=== PATIENT | female | born 1930 | race Caucasian/White ===

== ENCOUNTER → 2018-08-08 | Outpatient (CLI) | payer MEDICARE ==
[~2018-08-08] MED LIST: AMLO5TAB7 PO; HYDR25TA PO; LOSA100T20 PO; METO25TA6 PO; NACL5OS OU; RIVA20TA PO; ROSU10TA PO
[2018-08-08 13:57] LABS: BASOPHILS % (AUTO) 2.6 % (0.0-5.0); EOSINOPHILS % (AUTO) 0.5 % (0.0-8.0); HEMATOCRIT 26.8 % (36-48); LYMPHOCYTES % (AUTO) 9.7 % (21.0-51.0); MEAN CORPUSCULAR HEMOGLOBIN 23.2 pg (27.0-33.0); MEAN CORPUSCULAR HGB CONC 31.6 g/dL (32.0-36.0); MEAN CORPUSCULAR VOLUME 73.5 fL (79-99); MONOCYTES % (AUTO) 11.1 % (3.0-13.0); NEUTROPHILS % (AUTO) 76.1 % (40.0-77.0); NUCLEATED RED BLOOD CELLS 0.1 % (0.0-0.19); RED BLOOD CELL COUNT(AUTO) 3.64 MIL/uL (4.00-5.50); RED CELL DISTRIBUTION WIDTH 21.4 % (11.0-15.5); WHITE BLOOD COUNT (AUTO) 6.9 K/uL (4.8-10.8)
[2018-08-08 14:22] LABS: PLATELET COUNT (AUTO) 91 K/uL (130-400)
[2018-08-08 14:23] LABS: ALBUMIN 3.3 g/dL (3.5-5.0); BILIRUBIN,TOTAL 1.4 mg/dL (0.2-1.0); CREATININE 0.7 mg/dL (0.5-1.5); POTASSIUM 3.8 mmol/L (3.5-5.1); T4 (THYROXINE) 7.9 mcg/dL (4.7-13.3); TOTAL PROTEIN, SERUM 6.9 g/dL (6.0-8.3)
== END | disposition home or self-care (01) ==
LOC: RAH 13:17
PROVIDERS: ATTEND Internal Medicine
DX: I82.431 Acute embolism and thrombosis of right popliteal vein (principal); I11.0 Hypertensive heart disease with heart failure; I50.30 Unspecified diastolic (congestive) heart failure; E78.00 Pure hypercholesterolemia, unspecified; D50.9 Iron deficiency anemia, unspecified; I48.91 Unspecified atrial fibrillation; Z79.899 Other long term (current) drug therapy
CPT/HCPCS: 36415; 80053; 82607; 82746; 84436; 84481; 85025; 93971

== ENCOUNTER 2018-10-10 12:58 | Observation (INO) | payer MEDICARE ==
[~2018-10-10] VITALS: Ht 157.5 cm; Wt 74.8 kg
[~2018-10-10 12:58] MED LIST changes: -AMLO5TAB7 PO; +AMLO5TAB9 PO; -LOSA100T20 PO; +LOSA100T58 PO
[2018-10-10 14:04] LABS: BASOPHILS % (AUTO) 3.5 % (0.0-5.0); EOSINOPHILS % (AUTO) 0.9 % (0.0-8.0); MEAN CORPUSCULAR HEMOGLOBIN 23.5 pg (27.0-33.0); MEAN CORPUSCULAR VOLUME 75.7 fL (79-99); NEUTROPHILS % (AUTO) 63.6 % (40.0-77.0); NUCLEATED RED BLOOD CELLS 0.1 % (0.0-0.19); PLATELET COUNT (AUTO) 111 K/uL (130-400); RED BLOOD CELL COUNT(AUTO) 3.31 MIL/uL (4.00-5.50); RED CELL DISTRIBUTION WIDTH 23.9 % (11.0-15.5); WHITE BLOOD COUNT (AUTO) 4.1 K/uL (4.8-10.8)
[2018-10-10 14:10] LABS: INR 1.24 (0.85-1.15); PARTIAL THROMBOPLASTIN TIME 28.8 SEC (26.3-35.5)
[2018-10-10 14:24] LABS: CREATININE 0.8 mg/dL (0.5-1.5); POTASSIUM 3.8 mmol/L (3.5-5.1)
[2018-10-10 14:30] LABS: ALBUMIN 3.1 g/dL (3.5-5.0); TOTAL PROTEIN, SERUM 6.4 g/dL (6.0-8.3)
[2018-10-10 15:17] LABS: RETICULOCYTE % (AUTO) 2.27 % (0.42-2.23)
[2018-10-10] MEDS ORDERED: HYDRALAZINE HCL 20 MG/ML VIAL IV PRN (15:45)
[2018-10-10] MEDS ORDERED: EPOETIN ALFA 10,000 UNIT/ML VIAL SQ SCH (15:45)
[2018-10-10] MEDS ORDERED: ASCORBIC ACID 500 MG TAB PO SCH (15:45)
[2018-10-10] MEDS ORDERED: COMPOUND IV MISC 1 EACH IVSOLN MISC PRN (16:15)
[2018-10-10] MEDS ORDERED: FOLI1TAB15 PO (18:06)
[2018-10-10] MEDS ORDERED: CALC600T12 PO (18:06)
[2018-10-10] MEDS ORDERED: FERS325 PO (18:06)
[2018-10-10] MEDS ORDERED: BROM3DRO OP (18:07)
[2018-10-10] MEDS ORDERED: ATORVASTATIN CALCIUM 20 MG TABLET ONE (20:29)
[2018-10-10] MEDS: ATORVASTATIN CALCIUM 20 MG TABLET PO SCH (21:00)
[2018-10-10] MEDS: METOPROLOL TARTRATE 50 MG TAB PO SCH (21:00)
[2018-10-10] MEDS: FERROUS SULFATE 325 MG TABLET.DR PO SCH (21:00)
[2018-10-11 00:15] VITALS: BP 122/68
[2018-10-11 04:00] VITALS: BP 105/58
[2018-10-11 06:56] LABS: MEAN CORPUSCULAR HEMOGLOBIN 23.2 pg (27.0-33.0); MEAN CORPUSCULAR HGB CONC 31.5 g/dL (32.0-36.0); MEAN CORPUSCULAR VOLUME 73.7 fL (79-99); NUCLEATED RED BLOOD CELLS 0.3 % (0.0-0.19); PLATELET COUNT (AUTO) 91 K/uL (130-400); RED BLOOD CELL COUNT(AUTO) 2.61 MIL/uL (4.00-5.50); WHITE BLOOD COUNT (AUTO) 3.9 K/uL (4.8-10.8)
[2018-10-11 07:11] LABS: CREATININE 0.9 mg/dL (0.5-1.5)
[2018-10-11 07:16] LABS: HEMATOCRIT 19.3 % (36-48)
[2018-10-11 08:00] VITALS: BP 118/47
[2018-10-11] MEDS: BROMFENAC SODIUM OP SCH (09:00)
[2018-10-11] MEDS ORDERED: RIVAROXABAN 20 MG TABLET PO SCH (09:00)
[2018-10-11] MEDS ORDERED: SODIUM CHLORIDE 0.9% 250 ML IV ONE (09:44)
[2018-10-11] MEDS: PANTOPRAZOLE SODIUM 40 MG TABLET.DR PO SCH (10:25)
[2018-10-11] MEDS: HYDROCHLOROTHIAZIDE 25 MG TABLET PO SCH (10:25)
[2018-10-11] MEDS: ASCORBIC ACID 500 MG TAB PO SCH (10:25)
[2018-10-11] MEDS: FERROUS SULFATE 325 MG TABLET.DR PO SCH ×2 (10:25→21:55)
[2018-10-11] MEDS: METOPROLOL TARTRATE 50 MG TAB PO SCH ×2 (10:25→21:55)
[2018-10-11] MEDS: LOSARTAN 50 MG TABLET PO SCH (10:25)
[2018-10-11] MEDS: CALCIUM CARBONATE 500 MG TABLET PO SCH (10:25)
[2018-10-11] MEDS: FOLIC ACID 1 MG TABLET PO SCH (10:30)
--- NOTE | 2018-10-11 10:43 | NUR ---
BLOOD TRANSFUSION PATIENT AWAKE AND ALERT IN BED. VOICES ALL NEEDS. NO COMPLAINTS OF PAIN VOICED AT THIS TIME. 1ST UNIT OF PACKED RBCS STARTED AT THIS TIME. VITALS STABLE. AFEBRILE. NO ADVERSE REACTIONS NOTED. RESP EVEN AND UNLABORED. NO SOB NOTED. ON ROOM AIR. HOB ELEVATED. CALL LIGHT WITHIN REACH. WILL CONTINUE TO BE OBSERVED. Addendum: 10/11/18 at 1046 by ELOISA RICHEY RN RN Amended: Links added.
[2018-10-11 12:00] VITALS: BP 106/53
[2018-10-11] MEDS: IRON SUCROSE COMPLEX 100 MG in SODIUM CHLORIDE 0.9% 50 ML IV SCH (13:36)
[2018-10-11 16:00] VITALS: BP 118/72
[2018-10-11 19:30] VITALS: BP 116/55
[2018-10-11] MEDS: ATORVASTATIN CALCIUM 20 MG TABLET PO SCH (21:55)
[2018-10-12] VITALS: BP 110/58
[2018-10-12 04:25] VITALS: BP 131/69
[2018-10-12 06:10] LABS: HEMATOCRIT 28.9 % (36-48); MEAN CORPUSCULAR HEMOGLOBIN 24.2 pg (27.0-33.0); MEAN CORPUSCULAR HGB CONC 32.1 g/dL (32.0-36.0); MEAN CORPUSCULAR VOLUME 75.2 fL (79-99); NUCLEATED RED BLOOD CELLS 0.2 % (0.0-0.19); PLATELET COUNT (AUTO) 104 K/uL (130-400); RED BLOOD CELL COUNT(AUTO) 3.84 MIL/uL (4.00-5.50); RED CELL DISTRIBUTION WIDTH 21.7 % (11.0-15.5); WHITE BLOOD COUNT (AUTO) 5.2 K/uL (4.8-10.8)
[2018-10-12 06:20] LABS: CREATININE 0.9 mg/dL (0.5-1.5); POTASSIUM 3.8 mmol/L (3.5-5.1)
[2018-10-12] MEDS: CALCIUM CARBONATE 500 MG TABLET PO SCH (08:54)
[2018-10-12] MEDS: FOLIC ACID 1 MG TABLET PO SCH (08:55)
[2018-10-12] MEDS: PANTOPRAZOLE SODIUM 40 MG TABLET.DR PO SCH (08:55)
[2018-10-12] MEDS: ASCORBIC ACID 500 MG TAB PO SCH (08:55)
[2018-10-12] MEDS: METOPROLOL TARTRATE 50 MG TAB PO SCH (08:55)
[2018-10-12] MEDS: FERROUS SULFATE 325 MG TABLET.DR PO SCH (08:55)
[2018-10-12] MEDS: LOSARTAN 50 MG TABLET PO SCH (08:55)
[2018-10-12] MEDS: HYDROCHLOROTHIAZIDE 25 MG TABLET PO SCH (08:56)
[2018-10-12] MEDS: BROMFENAC SODIUM OP SCH (09:00)
[2018-10-12] MEDS: IRON SUCROSE COMPLEX 100 MG in SODIUM CHLORIDE 0.9% 50 ML IV SCH (13:39)
--- NOTE | 2018-10-12 14:14 | NUR ---
DISCHARGE PATIENT GIVEN DISCHARGE INSTRUCTIONS AND EDUCATION, INCLUDING FOLLOW UP APPOINTMENTS. NO NEW MEDICATIONS. PATIENT VERBALIZED UNDERSTANDING OF ALL EDUCATION GIVEN VIA TEACH BACK. NO QUESTIONS OR CONCERNS VOICED AT THIS TIME. VITALS STABLE. AFEBRILE. NO SIGNS OF DISTRESS NOTED UPON DISCHARGE. IV DISCONTINUED, CATHETER INTACT. PATIENT SITTING UP TO CHAIR, PENDING RIDE FOR EVENT CREW TECHNICIAN. CALL LIGHT WITHIN REACH. WILL CONTINUE TO BE OBSERVED. Addendum: 10/12/18 at 1417 by ELOISA RICHEY RN RN Amended: Links added.
--- NOTE | 2018-10-12 14:45 | NUR ---
DISCHARGE PATIENT LEFT VIA WHEELCHAIR WITH FRIEND AT SIDE TO PRIVATE CAR. ALL BELONGINGS TAKEN WITH. Addendum: 10/12/18 at 1446 by ELOISA RICHEY RN RN Amended: Links added.
== END 2018-10-12 14:41 | disposition home or self-care (01) ==
LOC: EDH 12:58 → EDHIP 15:36 → 3AH 23:45
PROVIDERS: ADMIT Internal Medicine; ATTEND Internal Medicine
DX: D62 Acute posthemorrhagic anemia (principal); J44.9 Chronic obstructive pulmonary disease, unspecified; I48.0 Paroxysmal atrial fibrillation; I10 Essential (primary) hypertension; D61.818 Other pancytopenia; D68.59 Other primary thrombophilia; Z86.79 Personal history of other diseases of the circulatory system; Z87.891 Personal history of nicotine dependence; Z91.19 Patient's noncompliance with other medical treatment and regimen; Z82.0 Family history of epilepsy and other diseases of the nervous system; Z82.3 Family history of stroke; Z82.49 Family history of ischemic heart disease and other diseases of the circulatory system; Z82.5 Family history of asthma and other chronic lower respiratory diseases; Z83.3 Family history of diabetes mellitus; Z79.899 Other long term (current) drug therapy
CPT/HCPCS: 36415 ×3; 36430; 80048 ×2; 80053; 82550; 82607; 82746; 83540; 84484; 85025; 85027 ×2; 85045; 85610; 85730; 86850; 86900; 86901; 86922; 93005; 96365; 96376; 99284; A4600; G0378 ×47; J0885; J1756 ×3; J7030; P9016 ×2

== ENCOUNTER 2018-12-21 11:50 | Inpatient (IN) | payer MEDICARE ==
[~2018-12-21] VITALS: Ht 157.5 cm; Wt 74.6 kg
[~2018-12-21 11:50] MED LIST changes: -AMLO5TAB9 PO; +BROM3DRO OP; +CALC600T12 PO; +FERS325 PO; +FOLI1TAB15 PO; -NACL5OS OU; -RIVA20TA PO
[2018-12-21] MEDS ORDERED: METHYLPREDNISOLONE SOD SUCC 125MG/2ML VIAL ONE (12:05)
[2018-12-21] MEDS ORDERED: LACTATED RINGERS 1000ML 1,000 ML IV ONE (12:05)
[2018-12-21] MEDS ORDERED: IPRATROPIUM/ALBUTEROL SULFATE 3 ML SOLUTION IH ONE (12:09)
[2018-12-21] MEDS ORDERED: LEVOFLOXACIN 750 MG/D5W 150 ML 150 ML ONE (12:30)
[2018-12-21 12:32] LABS: BASOPHILS % (AUTO) 1.4 % (0.0-5.0); EOSINOPHILS % (AUTO) 1.4 % (0.0-8.0); HEMATOCRIT 31.4 % (36-48); MEAN CORPUSCULAR HEMOGLOBIN 28.4 pg (27.0-33.0); MEAN CORPUSCULAR HGB CONC 32.7 g/dL (32.0-36.0); MEAN CORPUSCULAR VOLUME 86.8 fL (79-99); MONOCYTES % (AUTO) 13.4 % (3.0-13.0); NEUTROPHILS % (AUTO) 72.8 % (40.0-77.0); NUCLEATED RED BLOOD CELLS 0.1 % (0.0-0.19); PLATELET COUNT (AUTO) 52 K/uL (130-400); RED BLOOD CELL COUNT(AUTO) 3.61 MIL/uL (4.00-5.50); RED CELL DISTRIBUTION WIDTH 25.6 % (11.0-15.5); WHITE BLOOD COUNT (AUTO) 5.9 K/uL (4.8-10.8)
[2018-12-21 12:38] LABS: ABG BASE EXCESS 0.7 mmol/L (-2.0-3.0); ABG HCO3 24.5 mmol/L (21.0-28.0); ABG OXYGEN SATURATION 95.5 % (95.0-99.0); ABG PCO2 37 mmHg (32-45)
[2018-12-21 12:47] LABS: INR 1.06 (0.85-1.15); PARTIAL THROMBOPLASTIN TIME 31.8 SEC (26.3-35.5); PROTHROMBIN TIME 11.1 SEC (9.6-11.6)
[2018-12-21] MEDS ORDERED: METOPROLOL TARTRATE 1 MG/ML 5ML VIAL IV ONE (13:00)
[2018-12-21 13:13] LABS: B-TYPE NATRIURETIC PEPTIDE 574 pg/mL (0-100)
[2018-12-21] MEDS ORDERED: ALBUTEROL SULFATE 0.083% 2.5 MG/3 ML INH IH ONE (14:06)
[2018-12-21] MEDS ORDERED: SODIUM CHLORIDE 0.9% 1000ML 1,000 ML IV SCH (14:29)
[2018-12-21] MEDS ORDERED: ONDANSETRON HCL 4 MG/2 ML VIAL IV PRN (14:30)
[2018-12-21] MEDS ORDERED: METHYLPREDNISOLONE SOD SUCC 125MG/2ML VIAL IV SCH (14:30)
[2018-12-21] MEDS ORDERED: ACETAMINOPHEN 325 MG TAB PO PRN ×2 (14:30)
[2018-12-21] MEDS ORDERED: MORPHINE SULFATE 2 MG/ML 1ML SYG IV PRN (14:30)
[2018-12-21] MEDS ORDERED: LEVOFLOXACIN 500 MG/D5W 100 ML 100 ML IV SCH (14:30)
[2018-12-21 17:54] LABS: POTASSIUM 3.5 mmol/L (3.5-5.1)
--- NOTE | 2018-12-21 18:00 | NUR ---
ADMISSION PT RECEIVED FROM ER VIA STRETCHER. TRANSFERRED BY STAFF X 4 FROM STRETCHER TO BED. TOLERATED WELL. QAGAN TAYAGUNGIN. A/O X 3. SOB ON EXERTION. NO DISTRESS NOTED. O2 NC @ 2L. DENIES CHEST PAIN OR DISCOMFORT. DENIES PALPITATIONS. TELE: AFIB 130s. DENIES N/V AND/OR DIARRHEA. BR W/BRP. ORIENTED TO RM. INSTRUCTED TO CALL FOR ASSISTANCE. CALL [facility] W/IN REACH.
[2018-12-21 18:27] VITALS: BP 141/76
[2018-12-21] MEDS: SODIUM CHLORIDE 3% FOR INHALATION 4 ML/AMP VIAL.NEB IH SCH ×2 (18:40→23:52)
[2018-12-21] MEDS: BUDESONIDE 0.5 MG/2 ML INH IH SCH (18:53)
[2018-12-21 19:00] VITALS: BP 127/70
[2018-12-21] MEDS ORDERED: RIVA20TA PO (19:17)
[2018-12-21] MEDS ORDERED: METOPROLOL TARTRATE 25 MG TAB PO SCH (21:00)
[2018-12-21] MEDS ORDERED: FAMOTIDINE/PF 20 MG/2 ML VIAL IV SCH (21:00)
--- NOTE | 2018-12-21 21:33 | NUR ---
Received call from VIDYA Ramachandran ,updated with pt.'s condition admitted today for Acute COPD exacerbation and pt. is Afib RVR in the 120's .BNP 574 and on IVF .Received order to stop IVF .
[2018-12-21] MEDS ORDERED: METHYLPREDNISOLONE SOD SUCC 40MG/ML 1ML IVP SCH (22:00)
[2018-12-21 23:00] VITALS: BP 138/85
[2018-12-22 03:00] VITALS: BP 133/90
[2018-12-22 03:59] LABS: HEMATOCRIT 26.7 % (36-48); MEAN CORPUSCULAR HEMOGLOBIN 28.1 pg (27.0-33.0); MEAN CORPUSCULAR HGB CONC 32.7 g/dL (32.0-36.0); MEAN CORPUSCULAR VOLUME 85.8 fL (79-99); NUCLEATED RED BLOOD CELLS 0.1 % (0.0-0.19); PLATELET COUNT (AUTO) 41 K/uL (130-400); RED BLOOD CELL COUNT(AUTO) 3.11 MIL/uL (4.00-5.50); RED CELL DISTRIBUTION WIDTH 25.4 % (11.0-15.5); WHITE BLOOD COUNT (AUTO) 6.3 K/uL (4.8-10.8)
[2018-12-22 04:06] LABS: B-TYPE NATRIURETIC PEPTIDE 574 pg/mL (0-100); MAGNESIUM 1.9 mg/dL (1.80-2.40); PHOSPHORUS 3.3 mg/dL (2.5-4.9); POTASSIUM 3.4 mmol/L (3.5-5.1)
[2018-12-22] MEDS: METHYLPREDNISOLONE SOD SUCC 40MG/ML 1ML IVP SCH ×3 (05:37→21:10)
[2018-12-22] MEDS ORDERED: DILTIAZEM HCL 60 MG TABLET PO SCH (06:00)
[2018-12-22] MEDS: BUDESONIDE 0.5 MG/2 ML INH IH SCH ×2 (06:15→18:08)
[2018-12-22] MEDS: SODIUM CHLORIDE 3% FOR INHALATION 4 ML/AMP VIAL.NEB IH SCH ×3 (06:15→18:08)
--- NOTE | 2018-12-22 07:22 | NUR ---
Pt. watched TV for most of the night.Bedside report given to incoming NOD using SBAR all questions answered.
[2018-12-22 07:27] VITALS: BP 129/84
[2018-12-22] MEDS ORDERED: RIVAROXABAN 20 MG TABLET PO SCH (09:00)
[2018-12-22] MEDS ORDERED: LOSARTAN 100 MG TABLET PO SCH (09:00)
--- NOTE | 2018-12-22 09:33 | NUR ---
RALPH RAYGOZA MET WITH PT WHO STATES SHE LIVES ALONE IN [facility]. PT IS , NO KIDS, HAS FRIENDS THAT ASSIST NEEDED CRISTIANO LEMUS [phone] AND WILLI MORTON [phone]. PT STATES SHE IS INDEPENDENT, USES WALKER AND SHOWER CHAIR. PLAN IS HOME AT [place], FRIENDS TO TRANSPORT Addendum: 12/22/18 at 0935 by BIJAN DONNELLY Amended: Links added.
[2018-12-22] MEDS: LOSARTAN 50 MG TABLET PO SCH (09:57)
[2018-12-22] MEDS: FOLIC ACID 1 MG TABLET PO SCH (09:57)
[2018-12-22] MEDS: FERROUS SULFATE 325 MG TABLET.DR PO SCH ×2 (09:57→20:48)
[2018-12-22] MEDS: FAMOTIDINE 20MG TAB 20 MG TAB PO SCH (09:57)
[2018-12-22] MEDS: METOPROLOL TARTRATE 50 MG TAB PO SCH ×2 (09:57→20:48)
[2018-12-22] MEDS: FUROSEMIDE 10 MG/ML 4ML VIAL IV SCH (10:08)
[2018-12-22] MEDS ORDERED: POTASSIUM CHLORIDE 10% ELIXIR 20 MEQ/15 ML UDCUP PO SCH (10:15)
[2018-12-22 11:06] VITALS: BP 117/62
[2018-12-22] MEDS: ENOXAPARIN SODIUM 40 MG/0.4 ML SYRINGE SQ SCH (12:04)
[2018-12-22] MEDS: DILTIAZEM HCL 60 MG TABLET PO SCH ×2 (13:23→21:10)
[2018-12-22] MEDS: IPRATROPIUM/ALBUTEROL SULFATE 3 ML SOLUTION IH SCH ×3 (15:08→21:53)
[2018-12-22 16:00] VITALS: BP 97/55
[2018-12-22 20:09] VITALS: BP 104/60
[2018-12-23 00:11] VITALS: BP 116/64
[2018-12-23] MEDS: SODIUM CHLORIDE 3% FOR INHALATION 4 ML/AMP VIAL.NEB IH SCH ×3 (00:35→13:47)
[2018-12-23] MEDS: IPRATROPIUM/ALBUTEROL SULFATE 3 ML SOLUTION IH SCH ×4 (02:29→13:47)
[2018-12-23 03:51] LABS: HEMATOCRIT 27.9 % (36-48); MEAN CORPUSCULAR HEMOGLOBIN 28.4 pg (27.0-33.0); MEAN CORPUSCULAR HGB CONC 32.7 g/dL (32.0-36.0); MEAN CORPUSCULAR VOLUME 86.8 fL (79-99); NUCLEATED RED BLOOD CELLS 0.1 % (0.0-0.19); PLATELET COUNT (AUTO) 52 K/uL (130-400); RED BLOOD CELL COUNT(AUTO) 3.21 MIL/uL (4.00-5.50); RED CELL DISTRIBUTION WIDTH 25.1 % (11.0-15.5)
[2018-12-23 04:09] VITALS: BP 99/65
[2018-12-23 04:20] LABS: CREATININE 1.3 mg/dL (0.5-1.5); PHOSPHORUS 3.4 mg/dL (2.5-4.9); POTASSIUM 3.5 mmol/L (3.5-5.1)
[2018-12-23] MEDS: METHYLPREDNISOLONE SOD SUCC 40MG/ML 1ML IVP SCH ×3 (04:23→21:21)
[2018-12-23 04:50] LABS: B-TYPE NATRIURETIC PEPTIDE 506 pg/mL (0-100)
[2018-12-23] MEDS: BUDESONIDE 0.5 MG/2 ML INH IH SCH ×2 (05:59→18:21)
[2018-12-23] MEDS: DILTIAZEM HCL 60 MG TABLET PO SCH ×3 (06:08→21:22)
[2018-12-23 07:09] VITALS: BP 129/74
[2018-12-23] MEDS: FERROUS SULFATE 325 MG TABLET.DR PO SCH ×2 (07:13→21:22)
[2018-12-23] MEDS: METOPROLOL TARTRATE 50 MG TAB PO SCH ×2 (07:13→21:21)
[2018-12-23] MEDS: FUROSEMIDE 10 MG/ML 4ML VIAL IV SCH (07:13)
[2018-12-23] MEDS: LOSARTAN 50 MG TABLET PO SCH (07:13)
[2018-12-23] MEDS: ENOXAPARIN SODIUM 40 MG/0.4 ML SYRINGE SQ SCH (07:14)
[2018-12-23] MEDS: FOLIC ACID 1 MG TABLET PO SCH (07:14)
[2018-12-23] MEDS: FAMOTIDINE 20MG TAB 20 MG TAB PO SCH (07:14)
--- NOTE | 2018-12-23 08:00 | NUR ---
ASSESSMENT PT IS AAOX4 DENIES CP DENIES SOB AT REST. DENIES NV. NO COMPLAINTS VERBALIZED AT THIS TIME. AM MEDS GIVEN WITHOUT ISSUES. CALL LIGHT WITHIN REACH.
[2018-12-23 11:05] VITALS: BP 100/61
[2018-12-23] MEDS ORDERED: LEVOFLOXACIN 500 MG/D5W 100 ML 100 ML IV SCH (12:00)
--- NOTE | 2018-12-23 16:00 | NUR ---
DR BUCK ROUNDED SAW PATIENT
[2018-12-23 16:13] VITALS: BP 121/82
[2018-12-23] MEDS: IPRATROPIUM 0.5 MG/2.5 ML INH IH SCH ×2 (18:21→23:54)
[2018-12-23 20:04] VITALS: BP 118/67
[2018-12-23] MEDS: DOXYCYCLINE HYCLATE 100 MG TABLET PO SCH (21:22)
[2018-12-24] VITALS (7 sets, daily range): BP systolic 112–129; BP diastolic 61–79
[2018-12-24 04:22] LABS: BASOPHILS % (AUTO) 0.4 % (0.0-5.0); EOSINOPHILS % (AUTO) 0.2 % (0.0-8.0); HEMATOCRIT 26.6 % (36-48); LYMPHOCYTES % (AUTO) 6.1 % (21.0-51.0); MEAN CORPUSCULAR HEMOGLOBIN 28.6 pg (27.0-33.0); MEAN CORPUSCULAR HGB CONC 33.1 g/dL (32.0-36.0); MEAN CORPUSCULAR VOLUME 86.4 fL (79-99); MONOCYTES % (AUTO) 8.7 % (3.0-13.0); NEUTROPHILS % (AUTO) 84.6 % (40.0-77.0); NUCLEATED RED BLOOD CELLS 0.2 % (0.0-0.19); PLATELET COUNT (AUTO) 57 K/uL (130-400); RED BLOOD CELL COUNT(AUTO) 3.08 MIL/uL (4.00-5.50); RED CELL DISTRIBUTION WIDTH 25.6 % (11.0-15.5); WHITE BLOOD COUNT (AUTO) 7.5 K/uL (4.8-10.8)
[2018-12-24 04:42] LABS: CREATININE 1.2 mg/dL (0.5-1.5); MAGNESIUM 2.1 mg/dL (1.80-2.40); PHOSPHORUS 3.4 mg/dL (2.5-4.9); POTASSIUM 3.8 mmol/L (3.5-5.1); THYROID STIMULATING HORMONE 1.76 uIU/mL (0.36-3.74)
[2018-12-24] MEDS: METHYLPREDNISOLONE SOD SUCC 40MG/ML 1ML IVP SCH ×2 (05:09→13:47)
[2018-12-24] MEDS: DILTIAZEM HCL 60 MG TABLET PO SCH ×3 (05:09→20:29)
[2018-12-24] MEDS: IPRATROPIUM 0.5 MG/2.5 ML INH IH SCH ×4 (06:07→23:26)
[2018-12-24] MEDS: BUDESONIDE 0.5 MG/2 ML INH IH SCH ×2 (06:28→18:26)
[2018-12-24] MEDS: FAMOTIDINE 20MG TAB 20 MG TAB PO SCH (07:17)
[2018-12-24] MEDS: LOSARTAN 50 MG TABLET PO SCH (07:17)
[2018-12-24] MEDS: DOXYCYCLINE HYCLATE 100 MG TABLET PO SCH ×2 (07:18→20:30)
[2018-12-24] MEDS: ENOXAPARIN SODIUM 40 MG/0.4 ML SYRINGE SQ SCH (07:18)
[2018-12-24] MEDS: FERROUS SULFATE 325 MG TABLET.DR PO SCH ×2 (07:18→20:29)
[2018-12-24] MEDS: FOLIC ACID 1 MG TABLET PO SCH (07:18)
[2018-12-24] MEDS: METOPROLOL TARTRATE 50 MG TAB PO SCH ×2 (07:18→20:29)
--- NOTE | 2018-12-24 08:00 | NUR ---
ASSESSMENT PT IS AAOX3 DENIES CP DENIES SOB DENIES NV NO COMPLAINTS. SITTING UPRIGHT IN BED. CALL LIGHT WITHIN REACH, AM MEDS GIVEN AND TOLERATED. DOOR AJAR BLINDS OPEN.
[2018-12-25 03:43] LABS: BASOPHILS % (AUTO) 0.2 % (0.0-5.0); EOSINOPHILS % (AUTO) 0.2 % (0.0-8.0); HEMATOCRIT 26.7 % (36-48); LYMPHOCYTES % (AUTO) 7.6 % (21.0-51.0); MEAN CORPUSCULAR HEMOGLOBIN 28.8 pg (27.0-33.0); MEAN CORPUSCULAR HGB CONC 33.5 g/dL (32.0-36.0); MEAN CORPUSCULAR VOLUME 85.9 fL (79-99); MONOCYTES % (AUTO) 10.5 % (3.0-13.0); NEUTROPHILS % (AUTO) 81.5 % (40.0-77.0); NUCLEATED RED BLOOD CELLS 0.5 % (0.0-0.19); PLATELET COUNT (AUTO) 50 K/uL (130-400); RED BLOOD CELL COUNT(AUTO) 3.11 MIL/uL (4.00-5.50); RED CELL DISTRIBUTION WIDTH 25.3 % (11.0-15.5); WHITE BLOOD COUNT (AUTO) 5.7 K/uL (4.8-10.8)
[2018-12-25 03:51] LABS: POTASSIUM 4.1 mmol/L (3.5-5.1)
[2018-12-25 04:00] VITALS: BP_SYST 116; BP_SYST 127; BP_DIAS 72; BP_DIAS 79
[2018-12-25] MEDS: DILTIAZEM HCL 60 MG TABLET PO SCH ×2 (05:30→14:00)
[2018-12-25] MEDS: IPRATROPIUM 0.5 MG/2.5 ML INH IH SCH ×3 (06:38→18:18)
[2018-12-25] MEDS: BUDESONIDE 0.5 MG/2 ML INH IH SCH ×2 (06:39→18:43)
[2018-12-25 07:32] VITALS: BP 140/67
[2018-12-25] MEDS: FERROUS SULFATE 325 MG TABLET.DR PO SCH ×2 (08:49→20:52)
[2018-12-25] MEDS: FAMOTIDINE 20MG TAB 20 MG TAB PO SCH (08:49)
[2018-12-25] MEDS: DOXYCYCLINE HYCLATE 100 MG TABLET PO SCH ×2 (08:49→20:53)
[2018-12-25] MEDS: FOLIC ACID 1 MG TABLET PO SCH (08:49)
[2018-12-25] MEDS: LOSARTAN 50 MG TABLET PO SCH (08:49)
[2018-12-25] MEDS: METOPROLOL TARTRATE 50 MG TAB PO SCH ×2 (08:49→20:52)
[2018-12-25] MEDS: PREDNISONE 20 MG TABLET PO SCH (08:49)
[2018-12-25] MEDS: ENOXAPARIN SODIUM 40 MG/0.4 ML SYRINGE SQ SCH (08:50)
--- NOTE | 2018-12-25 10:30 | NUR ---
NOTIFIED DR. DALLAS UPON ROUNDS OF PT'S EDEMA TO BOTH LOWER EXTREMITIES--ORDERED ALBUMIN LEVEL, 2.4. ORDERS FOR ALBUMIN IV AND LASIX IV RECEIVED.
[2018-12-25 11:25] VITALS: BP 136/82
--- NOTE | 2018-12-25 13:32 | NUR ---
JOSE LUIS PLAN VISITED WITH PATIENTEmily HINES SIGNED FOR [employer] SENT. PENDING EVAL AND ACCEPTANCE. Addendum: 12/25/18 at 1333 by JEANETTE REYES RN CM Amended: Links added.
[2018-12-25] MEDS ORDERED: ZINC OXIDE OINT 56.7 GM TP PRN (13:57)
[2018-12-25] MEDS: ALBUMIN (HUMAN) 25% 50 ML IV SCH ×2 (14:10→22:08)
[2018-12-25] MEDS: FUROSEMIDE 10 MG/ML 2ML VIAL IV SCH ×2 (14:23→22:46)
[2018-12-25 15:26] VITALS: BP 142/86
[2018-12-25] MEDS: LACTULOSE 20 GM/30 ML UDCUP PO PRN (17:58)
--- NOTE | 2018-12-25 17:58 | NUR ---
GIVEN LACTULOSE 2OGM PO (LAST DOCUMENTED BM 12/21/18). ADULT BRIEF ON AND WILL CONTINUE TO MONITOR.
[2018-12-25 19:14] VITALS: BP 139/82
[2018-12-25 23:41] VITALS: BP 132/70
[2018-12-26] MEDS: IPRATROPIUM 0.5 MG/2.5 ML INH IH SCH ×3 (00:46→10:40)
[2018-12-26 03:43] VITALS: BP 142/82
[2018-12-26] MEDS: ALBUMIN (HUMAN) 25% 50 ML IV SCH (06:10)
[2018-12-26] MEDS: BUDESONIDE 0.5 MG/2 ML INH IH SCH (06:32)
[2018-12-26] MEDS: FUROSEMIDE 10 MG/ML 2ML VIAL IV SCH (06:48)
[2018-12-26 07:00] VITALS: BP 142/88
[2018-12-26] MEDS: DILTIAZEM HCL 60 MG TABLET PO SCH ×3 (07:16→14:43)
[2018-12-26] MEDS: FERROUS SULFATE 325 MG TABLET.DR PO SCH (08:24)
[2018-12-26] MEDS: FOLIC ACID 1 MG TABLET PO SCH (08:25)
[2018-12-26] MEDS: DOXYCYCLINE HYCLATE 100 MG TABLET PO SCH (08:25)
[2018-12-26] MEDS: FAMOTIDINE 20MG TAB 20 MG TAB PO SCH (08:25)
[2018-12-26] MEDS: LOSARTAN 50 MG TABLET PO SCH (08:26)
[2018-12-26] MEDS: METOPROLOL TARTRATE 50 MG TAB PO SCH (08:26)
[2018-12-26] MEDS: PREDNISONE 20 MG TABLET PO SCH (08:26)
[2018-12-26] MEDS: ENOXAPARIN SODIUM 40 MG/0.4 ML SYRINGE SQ SCH (08:27)
[2018-12-26] MEDS: LACTULOSE 20 GM/30 ML UDCUP PO PRN (08:44)
--- NOTE | 2018-12-26 08:44 | NUR ---
REPEATED LACTULOSE DOSE---NO BM OF 12/21/18.
[2018-12-26] MEDS ORDERED: DILT180C63 PO (08:55)
[2018-12-26] MEDS ORDERED: PRED20TA3 PO (08:55)
--- NOTE | 2018-12-26 09:30 | NUR ---
APPLYING DR. MEADOWS'S OINTMENT AFTER EACH INCONTINENCE OF URINE DUE TO RASH TO AMBROSE AREA.
[2018-12-26] MEDS ORDERED: POTASSIUM CHLORIDE 20 MEQ ERTAB PO SCH (10:30)
[2018-12-26 11:00] VITALS: BP 130/59
--- NOTE | 2018-12-26 13:26 | NUR ---
RD Notification Patient with COPD, PCM. Patient tolerating Heart Healthy diet with fair PO intake at 75%. Patient with reports constipation, LBM 12/21/18 as per EMR; Rec to add stool softener/laxative. Rec to add 60gm CCD secondary to COPD exacerbation and elevated serum glucose. Patient with low serum albumin; rec to add 60mL ProMod for PCM. Patient with 3+/2+ Pitting edema in lower extremities with low sodium, heart healthy diet in place; Rec to add 1500mL fluid restriction. Patient monitored labs: BUN 46, GFR 55, Glu 144, Ca 8.0, Alb 2.3. RD to continue to monitor. Please notify RD as nutritional concerns arise. Thank you. Recommendations/Interventions 1) Recommend 1500mL fluid restriction secondary to Fluid retention on Heart Healthy diet 2) Rec to add 60mL ProMod BID secondary to Protein-calorie malnutrition 3) Rec to add 60gm CCD secondary to elevated serum glucose with COPD exacerbation 4) Pt LBM 12/21/18; Rec to add stool softener/laxative secondary to constipation 5) RD to continue to monitor Addendum: 12/26/18 at [address] RD Amended: Links added.
[2018-12-26 16:00] VITALS: BP 148/56
--- NOTE | 2018-12-26 17:04 | NUR ---
REPORT CALLED TO RADHA RAMESH LVN AT [facility] AT [phone].
--- NOTE | 2018-12-26 17:36 | NUR ---
GIVEN DISMISSAL INSTRUCTIONS, VERBALIZED UNDERSTANDING. REMOVED TELE PACK, REMOVED SALINE LOCK FROM LEFT FOREARM. IV SITE WITHOUT REDNESS NOTED. AWAITING FOR [facility] TRANSPORT.
--- NOTE | 2018-12-26 17:42 | NUR ---
TAKEN TO SHAHLA KEBEDE ALONG WITH PERSONAL BELONGINGS.
== END 2018-12-26 17:45 | DRG 193 ==
LOC: EDH 11:50 → EDHIP 14:29 → 2AH 16:51
PROVIDERS: ADMIT Internal Medicine; ATTEND Internal Medicine
DX: J18.9 Pneumonia, unspecified organism (principal); J96.21 Acute and chronic respiratory failure with hypoxia; J44.1 Chronic obstructive pulmonary disease with (acute) exacerbation; J98.11 Atelectasis; J90 Pleural effusion, not elsewhere classified; D68.59 Other primary thrombophilia; J44.0 Chronic obstructive pulmonary disease with (acute) lower respiratory infection; I48.92 Unspecified atrial flutter; D69.6 Thrombocytopenia, unspecified; I11.9 Hypertensive heart disease without heart failure; I25.10 Atherosclerotic heart disease of native coronary artery without angina pectoris; I48.91 Unspecified atrial fibrillation; R29.6 Repeated falls; Z79.01 Long term (current) use of anticoagulants; Z79.899 Other long term (current) drug therapy; Z86.79 Personal history of other diseases of the circulatory system; Z87.891 Personal history of nicotine dependence; Z82.0 Family history of epilepsy and other diseases of the nervous system; Z82.3 Family history of stroke; Z82.49 Family history of ischemic heart disease and other diseases of the circulatory system; Z82.5 Family history of asthma and other chronic lower respiratory diseases; Z83.3 Family history of diabetes mellitus
CPT/HCPCS: 36415; 36600; 70450; 71045; 71250; 80048; 82040; 82803; 83605; 83735; 83880; 84100; 84132; 84443; 84484; 85025; 85027; 85610; 85730; 87040; 87804; 93005; 94640; 94664; 94667; 94668; 97039; 99291; G0378; J1650; J1940; J1956; J2920; J2930; J3490; J7120; P9047